=== PATIENT | female | born 1940 | race Caucasian/White ===

== ENCOUNTER → 2016-07-29 | Outpatient (CLI) | payer MEDICARE, OTHER ==
[~2016-07-29] MED LIST: ASPIRIN81 M1 PO; CIPRO500 MG PO; CRESTOR20 MG PO; DIOVAN320 MG PO; HYDR12.5C PO; LOVASTATIN20 MG PO; PRAVASTATIN SOD20 MG PO
== END | disposition home or self-care (01) ==
LOC: RAD 10:33
DX: M25.551 Pain in right hip (principal)

== ENCOUNTER → 2016-11-05 | Outpatient (CLI) | payer MEDICARE, OTHER | END | disposition home or self-care (01) | LOC: MAMMO 12:42 | DX: Z12.31 Encounter for screening mammogram for malignant neoplasm of breast (principal); N95.9 Unspecified menopausal and perimenopausal disorder; Z90.710 Acquired absence of both cervix and uterus; Z90.722 Acquired absence of ovaries, bilateral ==

== ENCOUNTER 2016-11-16 10:50 | Emergency (ER) | payer MEDICARE, BC ==
[~2016-11-16] VITALS: Wt 104.3 kg
--- NOTE | ~2016-11-16 | EKG ---
[place], [place] ELECTROCARDIOGRAM REPORT NAME: SHA TUCKER UNIT #: [id number] ROOM: DOCTOR: SUREKHA SCHAEFER MD BIRTHDATE: [birth year] DOS: 11/16/2016 TIME: 11:18 am. Sinus tachycardia at rate of 107, leftward axis, poor pericardial R-wave progression. Abnormal electrocardiogram. SUREKHA SCHAEFER MD CM:EKGRPT:ELECTROCARDIOGRAM REPORT [id number] SUREKHA SCHAEFER MD
[2016-11-16 11:31] LABS: BASO % 0.2 % (0.0-1.0); EOS # 0.3 10*3/uL (0.0-0.4); EOS % 7.6 % (1.0-4.0); HEMOGLOBIN 12.7 g/dl (12.0-16.0); LYMPH % 23.7 % (27.0-41.0); MEAN CELL VOLUME 89.7 fl (81.0-99.0); MEAN CORPUSCULAR HGB 29.2 pg (27.0-31.0); MEAN CORPUSCULAR HGB CONC 32.6 g/dl (33.0-37.0); MEAN PLATELET VOLUME 11.1 fl (9.6-12.3); MONO # 0.4 10*3/uL (0.1-1.0); NEUT # 2.4 10*3/uL (2.3-7.9); NEUT % 58.3 % (47.0-73.0); PLATELET COUNT AUTOMATED 131 10*3/uL (130-400); RED BLOOD COUNT 4.35 10*6/uL (4.10-5.10); RED CELL DISTRI WIDTH 14.6 % (0-14.5); WHITE BLOOD COUNT 4.1 10*3/uL (4.8-10.8)
[2016-11-16 11:44] LABS: PROTHROMBIN TIME 10.2 SECONDS (9.0-12.4)
[2016-11-16 11:47] LABS: ALBUMIN 3.5 gm/dl (3.1-4.5); ALKALINE PHOSPHATASE 68 U/L (45-117); BILIRUBIN, TOTAL 0.5 mg/dl (0.2-1.0); BUN 18 mg/dl (7-24); CARBON DIOXIDE 28 mmol/L (21-32); CHLORIDE 102 mmol/L (98-107); EST GLOM FILT AFRICAN AMERICAN > 60 ml/min; GLUCOSE 113 mg/dL (65-99); MAGNESIUM 2.2 mg/dL (1.5-2.1); POTASSIUM 4.2 mmol/L (3.5-5.1); SGOT/AST 23 IU/L (3-35); SGPT/ALT 21 U/L (12-78); SODIUM 140 mmol/L (136-145); TOTAL PROTEIN 7.9 gm/dL (6.4-8.2)
[2016-11-16 11:48] LABS: TROPONIN I < 0.015 ng/ml (<0.045)
== END 2016-11-16 14:22 | disposition home or self-care (01) ==
LOC: ED 10:50
PROVIDERS: Emergency Medicine
DX: R06.00 Dyspnea, unspecified (principal); Z79.82 Long term (current) use of aspirin

== ENCOUNTER → 2016-11-19 | Outpatient (CLI) | payer MEDICARE, BC ==
[~2016-11-19] MED LIST changes: +ALEVE220 MG PO; +CRESTOR PO; +EVISTA60 MG PO; +LEXAPRO10 MG PO; +SYNTHROID25 MCG PO
--- NOTE | ~2016-11-19 | ST ---
[place], [place] EXERCISE STRESS TEST REPORT NAME[id number] UNIT #: [id number] ROOM: DOCTOR: FORTINO SYKES MD BIRTHDATE: [birth year] DOS: 11/19/2016 LEXISCAN STRESS TEST REASON FOR TESTING: Evaluation of shortness of breath and chest heaviness. After explaining the procedure and obtaining consent, the patient was subjected to Lexiscan infusion of 0.4 mg. Resting heart rate was 99 with blood pressure of 118/52. EKG showed sinus rhythm, normal axis, nonspecific ST-T wave changes. The patient did not have any complaints of chest pains during the stress test, but she did complain of chest heaviness. EKG did not show any abnormalities during the Lexiscan infusion. After the infusion was over, she was injected with Cardiolite and stress images were taken. ASSESSMENT AND PLAN: Lexiscan stress test without any ST-T wave changes or arrhythmias. The patient does complain of chest heaviness. We are awaiting the Cardiolite images. FORTINO SYKES MD CM:STRESS:EXERCISE STRESS TEST REPORT [id number] FORTINO SYKES MD
== END | disposition home or self-care (01) ==
LOC: CARD 02:33
DX: R06.00 Dyspnea, unspecified (principal); R06.02 Shortness of breath

== ENCOUNTER 2017-06-06 11:05 | Emergency (ER) | payer MEDICARE, BC | END 2017-06-06 13:42 | disposition home or self-care (01) | LOC: ED 11:05 | DX: S52.511A Displaced fracture of right radial styloid process, initial encounter for closed fracture (principal); Z90.710 Acquired absence of both cervix and uterus; Z96.652 Presence of left artificial knee joint; Z98.42 Cataract extraction status, left eye; Z79.82 Long term (current) use of aspirin; Z79.899 Other long term (current) drug therapy; W19.XXXA Unspecified fall, initial encounter; Y93.89 Activity, other specified; Y92.89 Other specified places as the place of occurrence of the external cause; Y99.9 Unspecified external cause status ==

== ENCOUNTER → 2017-10-27 | Outpatient (CLI) | payer MEDICARE, BC | END | disposition home or self-care (01) | LOC: LAB 09:16 | DX: Z01.818 Encounter for other preprocedural examination (principal) ==

== ENCOUNTER 2018-11-30 16:32 | Emergency (ER) | payer MEDICARE, BC ==
[~2018-11-30] VITALS: Ht 172.7 cm; Wt 102.1 kg
[2018-11-30] MEDS ORDERED: NORCO 5-325 TA1 EACH PO (19:56)
== END 2018-11-30 20:15 | disposition home or self-care (01) ==
LOC: ED 16:32
DX: S42.215A Unspecified nondisplaced fracture of surgical neck of left humerus, initial encounter for closed fracture (principal); S42.255A Nondisplaced fracture of greater tuberosity of left humerus, initial encounter for closed fracture; S42.265A Nondisplaced fracture of lesser tuberosity of left humerus, initial encounter for closed fracture; M25.562 Pain in left knee; Z79.899 Other long term (current) drug therapy; Z79.82 Long term (current) use of aspirin; Z90.710 Acquired absence of both cervix and uterus; W18.09XA Striking against other object with subsequent fall, initial encounter; Y93.01 Activity, walking, marching and hiking; Y92.238 Other place in hospital as the place of occurrence of the external cause; Y99.8 Other external cause status

== ENCOUNTER → 2018-12-28 | Outpatient (CLI) | payer MEDICARE, BC ==
[~2018-12-28] MED LIST changes: +NORCO 5-325 TA1 EACH PO
== END | disposition home or self-care (01) ==
LOC: CT 10:10
DX: S42.402D Unspecified fracture of lower end of left humerus, subsequent encounter for fracture with routine healing (principal); X58.XXXD Exposure to other specified factors, subsequent encounter

== ENCOUNTER → 2019-02-07 | Outpatient (CLI) | payer MEDICARE, BC | END | disposition home or self-care (01) | LOC: CT 10:28 | DX: S42.202D Unspecified fracture of upper end of left humerus, subsequent encounter for fracture with routine healing (principal); M62.50 Muscle wasting and atrophy, not elsewhere classified, unspecified site; X58.XXXD Exposure to other specified factors, subsequent encounter ==

== ENCOUNTER 2019-09-07 16:32 | Emergency (ER) | payer MEDICARE, BC ==
[~2019-09-07] VITALS: Ht 172.7 cm; Wt 104.3 kg
[2019-09-07 17:18] LABS: BILIRUBIN 1+ (NEGATIVE); BLOOD NEGATIVE (NEGATIVE); CLARITY SL CLOUDY (CLEAR); COLOR YELLOW (YELLOW); GLUCOSE NEGATIVE (NEGATIVE); KETONE NEGATIVE (NEGATIVE); LEUKO ESTERASE TRACE (NEGATIVE); NITRITE NEGATIVE (NEGATIVE); UROBILINOGEN 0.2 E.U./dl (0.2-1.0)
[2019-09-07 17:21] LABS: BACTERIA 2+; EPITHELIAL CELLS 15-20; MUCOUS 1+; YEAST 1+
[2019-09-07 17:32] LABS: BASO % 0.6 % (0.0-1.0); EOS # 0.3 10*3/uL (0.0-0.4); EOS % 3.6 % (1.0-4.0); HEMATOCRIT 38.8 % (37.0-47.0); HEMOGLOBIN 11.9 g/dl (12.0-16.0); LYMPH # 2.7 10*3/uL (1.3-4.4); LYMPH % 37.3 % (27.0-41.0); MEAN CELL VOLUME 89.8 fl (81.0-99.0); MEAN CORPUSCULAR HGB 27.5 pg (27.0-31.0); MEAN CORPUSCULAR HGB CONC 30.7 g/dl (33.0-37.0); MEAN PLATELET VOLUME 11.1 fl (9.6-12.3); MONO # 0.7 10*3/uL (0.1-1.0); MONO % 9.1 % (3.0-9.0); NEUT # 3.6 10*3/uL (2.3-7.9); NEUT % 49.3 % (47.0-73.0); PLATELET COUNT AUTOMATED 221 10*3/uL (130-400); RED BLOOD COUNT 4.32 10*6/uL (4.10-5.10); RED CELL DISTRI WIDTH 13.5 % (0-14.5); WHITE BLOOD COUNT 7.2 10*3/uL (4.8-10.8)
[2019-09-07 17:58] LABS: ALBUMIN 3.6 gm/dl (3.1-4.5); ALKALINE PHOSPHATASE 102 U/L (45-117); BUN 17 mg/dl (7-24); CHLORIDE 109 mmol/L (98-107); SGOT/AST 20 IU/L (3-35); SGPT/ALT 24 U/L (12-78); SODIUM 141 mmol/L (136-145); TOTAL PROTEIN 7.4 gm/dL (6.4-8.2)
[2019-09-07] MEDS ORDERED: CEFUROXIME AXE500 MG PO (18:27)
== END 2019-09-07 18:14 | disposition home or self-care (01) ==
LOC: ED 16:32
PROVIDERS: Nurse Practitioner Family
DX: N39.0 Urinary tract infection, site not specified (principal); I10 Essential (primary) hypertension; F41.9 Anxiety disorder, unspecified; E78.00 Pure hypercholesterolemia, unspecified; Z79.899 Other long term (current) drug therapy; Z79.82 Long term (current) use of aspirin

== ENCOUNTER 2019-10-09 11:53 | Inpatient (IN) | payer MEDICARE, BC ==
[~2019-10-09] VITALS: Ht 172.7 cm; Wt 108.0 kg
[~2019-10-09 11:53] MED LIST changes: +CEFUROXIME AXE500 MG PO
[2019-10-09 11:58] VITALS: BP 146/72
[2019-10-09 12:30] LABS: BASO % 0.6 % (0.0-1.0); EOS # 0.1 10*3/uL (0.0-0.4); EOS % 0.9 % (1.0-4.0); HEMATOCRIT 37.4 % (37.0-47.0); HEMOGLOBIN 11.6 g/dl (12.0-16.0); LYMPH # 1.3 10*3/uL (1.3-4.4); LYMPH % 23.7 % (27.0-41.0); MEAN PLATELET VOLUME 10.7 fl (9.6-12.3); MONO # 0.8 10*3/uL (0.1-1.0); MONO % 13.8 % (3.0-9.0); NEUT # 3.3 10*3/uL (2.3-7.9); NEUT % 60.4 % (47.0-73.0); PLATELET COUNT AUTOMATED 176 10*3/uL (130-400); RED CELL DISTRI WIDTH 14.6 % (0-14.5); WHITE BLOOD COUNT 5.4 10*3/uL (4.8-10.8)
[2019-10-09 12:45] LABS: ALBUMIN 3.5 gm/dl (3.1-4.5); ALKALINE PHOSPHATASE 84 U/L (45-117); BUN 8 mg/dl (7-24); CHLORIDE 103 mmol/L (98-107); CREATININE 0.91 mg/dL (0.55-1.02); POTASSIUM 3.6 mmol/L (3.5-5.1); SGOT/AST 57 IU/L (3-35); SGPT/ALT 38 U/L (12-78); SODIUM 137 mmol/L (136-145); TOTAL PROTEIN 7.6 gm/dL (6.4-8.2)
[2019-10-09 12:51] LABS: TROPONIN I < 0.015 ng/ml (<0.045)
[2019-10-09 12:52] LABS: ACT PARTIAL THROMBO TIME 25.4 SECONDS (20.0-32.1)
[2019-10-09 20:55] VITALS: BP 114/61
[2019-10-10] VITALS: BP 131/64
[2019-10-10 00:12] VITALS: BP 118/72
[2019-10-10 06:45] LABS: BASO % 0.2 % (0.0-1.0); HEMATOCRIT 34.4 % (37.0-47.0); HEMOGLOBIN 10.6 g/dl (12.0-16.0); LYMPH # 1.2 10*3/uL (1.3-4.4); LYMPH % 26.3 % (27.0-41.0); MEAN CELL VOLUME 87.5 fl (81.0-99.0); MEAN CORPUSCULAR HGB CONC 30.8 g/dl (33.0-37.0); MEAN PLATELET VOLUME 11.3 fl (9.6-12.3); MONO # 0.5 10*3/uL (0.1-1.0); MONO % 10.9 % (3.0-9.0); NEUT # 2.8 10*3/uL (2.3-7.9); NEUT % 61.9 % (47.0-73.0); PLATELET COUNT AUTOMATED 181 10*3/uL (130-400); RED BLOOD COUNT 3.93 10*6/uL (4.10-5.10); RED CELL DISTRI WIDTH 14.6 % (0-14.5); WHITE BLOOD COUNT 4.5 10*3/uL (4.8-10.8)
[2019-10-10 06:49] LABS: ACT PARTIAL THROMBO TIME 28.5 SECONDS (20.0-32.1)
[2019-10-10 06:51] LABS: ALKALINE PHOSPHATASE 74 U/L (45-117); BUN 15 mg/dl (7-24); CHLORIDE 107 mmol/L (98-107); CREATININE 0.81 mg/dL (0.55-1.02); PHOSPHOROUS 4.3 mg/dL (2.5-4.9); SGOT/AST 34 IU/L (3-35); SGPT/ALT 31 U/L (12-78); SODIUM 141 mmol/L (136-145); TOTAL PROTEIN 6.9 gm/dL (6.4-8.2)
[2019-10-10 08:00] VITALS: BP 132/56
[2019-10-10 12:00] VITALS: BP 130/62
[2019-10-10 16:00] VITALS: BP 137/44
[2019-10-10 20:00] VITALS: BP 143/68
[2019-10-10] MEDS ORDERED: NORVASC5 MG PO (20:02)
[2019-10-10] MEDS ORDERED: METOPROLOL SUCC25 M2 PO (20:02)
[2019-10-10] MEDS ORDERED: SYNTHROID25 MCG PO (20:04)
[2019-10-10] MEDS ORDERED: CRESTOR20 M1 PO (20:04)
[2019-10-10] MEDS ORDERED: LEXAPRO10 MG PO (20:05)
[2019-10-10] MEDS ORDERED: SYMB80 INH (20:05)
[2019-10-10] MEDS ORDERED: COZAAR100 MG PO (20:05)
[2019-10-11] VITALS: BP 136/46
[2019-10-11 08:00] VITALS: BP 129/82
[2019-10-11 12:00] VITALS: BP 118/96
[2019-10-11 16:00] VITALS: BP 129/55
[2019-10-11 20:00] VITALS: BP 140/76
[2019-10-12 08:00] VITALS: BP 142/82
[2019-10-12 12:00] VITALS: BP 112/70
[2019-10-12] MEDS ORDERED: VENT7GM INH (14:06)
== END 2019-10-12 16:25 | disposition home or self-care (01) | DRG 194 ==
LOC: ED 11:53 → EDHOLD 17:20 → 5E 17:20
PROVIDERS: Family Medicine; Internal Medicine; Physician Assistant; ADMIT Internal Medicine
DX: J18.9 Pneumonia, unspecified organism (principal); E44.0 Moderate protein-calorie malnutrition; R68.89 Other general symptoms and signs; D64.9 Anemia, unspecified; R73.9 Hyperglycemia, unspecified; E83.41 Hypermagnesemia; I25.10 Atherosclerotic heart disease of native coronary artery without angina pectoris; E78.5 Hyperlipidemia, unspecified; I10 Essential (primary) hypertension; E03.9 Hypothyroidism, unspecified; F41.1 Generalized anxiety disorder; Z79.82 Long term (current) use of aspirin; Z79.899 Other long term (current) drug therapy; Z68.36 Body mass index [BMI] 36.0-36.9, adult

== ENCOUNTER 2021-07-09 11:07 | Emergency (ER) | payer MEDICARE, BC ==
[~2021-07-09] VITALS: Ht 172.7 cm; Wt 102.1 kg
[~2021-07-09 11:07] MED LIST changes: +COZAAR100 MG PO; +CRESTOR20 M1 PO; +METOPROLOL SUCC25 M2 PO; +NORVASC5 MG PO; +SYMB80 INH; +VENT7GM INH
[2021-07-09 15:35] LABS: BILIRUBIN Negative (Negative); BLOOD Negative (Negative); CLARITY Cloudy (Clear); COLOR Yellow (Yellow); GLUCOSE Negative (Negative); KETONE Trace (Negative); LEUKO ESTERASE 1+ (Negative); NITRITE Negative (Negative); SPECIFIC GRAVITY 1.025 (1.001-1.030)
[2021-07-09 16:03] LABS: BACTERIA 1+
[2021-07-09 16:47] LABS: BASO # 0.1 10*3/uL (0.0-0.1); BASO % 0.8 % (0.0-1.0); EOS # 0.3 10*3/uL (0.0-0.4); EOS % 4.4 % (1.0-4.0); LYMPH # 2.9 10*3/uL (1.3-4.4); LYMPH % 44.1 % (27.0-41.0); MEAN CELL VOLUME 87.4 fl (81.0-99.0); MEAN CORPUSCULAR HGB 26.4 pg (27.0-31.0); MEAN CORPUSCULAR HGB CONC 30.3 g/dl (33.0-37.0); MONO # 0.7 10*3/uL (0.1-1.0); MONO % 9.8 % (3.0-9.0); NEUT # 2.7 10*3/uL (2.3-7.9); NEUT % 40.7 % (47.0-73.0); PLATELET COUNT AUTOMATED 223 10*3/uL (130-400); RED BLOOD COUNT 4.35 10*6/uL (4.10-5.10); RED CELL DISTRI WIDTH 15.7 % (0-14.5); WHITE BLOOD COUNT 6.7 10*3/uL (4.8-10.8)
[2021-07-09 16:58] LABS: ACT PARTIAL THROMBO TIME 25.8 SECONDS (20.0-32.1)
[2021-07-09 17:06] LABS: ALBUMIN 3.3 gm/dl (3.1-4.5); ALKALINE PHOSPHATASE 79 U/L (45-117); BUN 9 mg/dl (7-24); CHLORIDE 106 mmol/L (98-107); CREATININE 0.72 mg/dL (0.55-1.02); LIPASE 109 U/L (73-393); POTASSIUM 3.5 mmol/L (3.5-5.1); SGOT/AST 21 IU/L (3-35); SGPT/ALT 20 U/L (12-78); SODIUM 140 mmol/L (136-145); TOTAL PROTEIN 7.7 gm/dL (6.4-8.2)
[2021-07-09] MEDS ORDERED: SEPTDS PO (20:58)
== END 2021-07-09 23:25 | disposition left against medical advice (07) ==
LOC: ED 11:07
PROVIDERS: Physician Assistant
DX: L03.116 Cellulitis of left lower limb (principal); Z79.899 Other long term (current) drug therapy

== ENCOUNTER 2021-07-29 12:22 | Emergency (ER) | payer MEDICARE, BC ==
[~2021-07-29] VITALS: Wt 99.8 kg
[~2021-07-29 12:22] MED LIST changes: +SEPTDS PO
[2021-07-29 13:16] LABS: BASO % 0.5 % (0.0-1.0); EOS # 0.3 10*3/uL (0.0-0.4); EOS % 3.8 % (1.0-4.0); HEMATOCRIT 38.2 % (37.0-47.0); LYMPH # 3.2 10*3/uL (1.3-4.4); LYMPH % 39.5 % (27.0-41.0); MEAN CELL VOLUME 87.4 fl (81.0-99.0); MEAN CORPUSCULAR HGB 26.8 pg (27.0-31.0); MEAN CORPUSCULAR HGB CONC 30.6 g/dl (33.0-37.0); MONO # 0.7 10*3/uL (0.1-1.0); NEUT # 3.9 10*3/uL (2.3-7.9); PLATELET COUNT AUTOMATED 218 10*3/uL (130-400); RED BLOOD COUNT 4.37 10*6/uL (4.10-5.10); RED CELL DISTRI WIDTH 15.4 % (0-14.5); WHITE BLOOD COUNT 8.1 10*3/uL (4.8-10.8)
[2021-07-29 13:34] LABS: ALBUMIN 3.5 gm/dl (3.1-4.5); ALKALINE PHOSPHATASE 86 U/L (45-117); BUN 14 mg/dl (7-24); CHLORIDE 106 mmol/L (98-107); CREATININE 0.82 mg/dL (0.55-1.02); POTASSIUM 4.1 mmol/L (3.5-5.1); SGOT/AST 29 IU/L (3-35); SGPT/ALT 20 U/L (12-78); SODIUM 139 mmol/L (136-145); TOTAL PROTEIN 7.8 gm/dL (6.4-8.2)
[2021-07-29] MEDS ORDERED: CLINDAMYCIN HC300 MG PO (15:21)
== END 2021-07-29 15:52 | disposition home or self-care (01) ==
LOC: ED 12:22
PROVIDERS: Physician Assistant
DX: L03.116 Cellulitis of left lower limb (principal)

== ENCOUNTER 2022-10-19 14:38 | Emergency (ER) | payer MEDICARE, BC ==
[~2022-10-19] VITALS: Ht 165.1 cm; Wt 99.8 kg
[~2022-10-19 14:38] MED LIST changes: +CLINDAMYCIN HC300 MG PO
[2022-10-19 15:58] LABS: BILIRUBIN Negative (Negative); BLOOD Negative (Negative); CLARITY Cloudy (Clear); COLOR Dark Yellow (Yellow); GLUCOSE Negative (Negative); KETONE Trace (Negative); LEUKO ESTERASE 1+ (Negative); NITRITE Positive (Negative); PH 5.5 (4.5-8.0); SPECIFIC GRAVITY >= 1.030 (1.001-1.030)
[2022-10-19 17:31] LABS: BACTERIA 1+; RBC 0-2 rbc/hpf (0-2)
[2022-10-19] MEDS ORDERED: TRAMADOL HCL50 MG PO (17:34)
[2022-10-19] MEDS ORDERED: CEPHALEXIN500 M1 PO (17:34)
== END 2022-10-19 17:51 | disposition home or self-care (01) ==
LOC: ED 14:38
PROVIDERS: Physician Assistant
DX: S32.028A Other fracture of second lumbar vertebra, initial encounter for closed fracture (principal); S32.018A Other fracture of first lumbar vertebra, initial encounter for closed fracture; I10 Essential (primary) hypertension; N39.0 Urinary tract infection, site not specified; F41.9 Anxiety disorder, unspecified; J45.909 Unspecified asthma, uncomplicated; E78.00 Pure hypercholesterolemia, unspecified; Z90.710 Acquired absence of both cervix and uterus; Z96.652 Presence of left artificial knee joint; Z98.42 Cataract extraction status, left eye; X58.XXXA Exposure to other specified factors, initial encounter; Y93.89 Activity, other specified; Y92.89 Other specified places as the place of occurrence of the external cause; Y99.8 Other external cause status

== ENCOUNTER 2022-11-25 12:03 | Emergency (ER) | payer MEDICARE, BC ==
[~2022-11-25] VITALS: Ht 170.1 cm; Wt 95.3 kg
[~2022-11-25 12:03] MED LIST changes: +CEPHALEXIN500 M1 PO; +TRAMADOL HCL50 MG PO
[2022-11-25 12:39] LABS: BASO % 0.8 % (0.0-1.0); EOS # 0.1 10*3/uL (0.0-0.4); LYMPH # 1.6 10*3/uL (1.3-4.4); LYMPH % 32.3 % (27.0-41.0); MEAN CELL VOLUME 83.3 fl (81.0-99.0); MEAN CORPUSCULAR HGB 26.3 pg (27.0-31.0); MEAN CORPUSCULAR HGB CONC 31.5 g/dl (33.0-37.0); MEAN PLATELET VOLUME 11.4 fl (9.6-12.3); MONO # 0.4 10*3/uL (0.1-1.0); MONO % 7.3 % (3.0-9.0); NEUT # 2.9 10*3/uL (2.3-7.9); NEUT % 57.4 % (47.0-73.0); PLATELET COUNT AUTOMATED 192 10*3/uL (130-400); RED CELL DISTRI WIDTH 16.4 % (0-14.5); WHITE BLOOD COUNT 5.1 10*3/uL (4.8-10.8)
[2022-11-25 12:48] LABS: INTERNATIONAL NORM RATIO 1.1 (2.0-3.5)
[2022-11-25 12:56] LABS: ALKALINE PHOSPHATASE 99 U/L (46-116); BUN 10 mg/dl (9-23); CHLORIDE 103 mmol/L (98-107); POTASSIUM 3.8 mmol/L (3.4-5.1); TOTAL PROTEIN 7.2 gm/dL (6.0-8.0)
[2022-11-25 12:58] LABS: SGPT/ALT < 7 U/L (10-49)
[2022-11-25 15:20] LABS: BILIRUBIN Negative (Negative); BLOOD Negative (Negative); CLARITY Clear (Clear); COLOR Yellow (Yellow); GLUCOSE Negative (Negative); KETONE 1+ (Negative); LEUKO ESTERASE Trace (Negative); NITRITE Negative (Negative); SPECIFIC GRAVITY 1.015 (1.001-1.030)
[2022-11-25 15:28] LABS: BACTERIA 1+; CALCIUM OXALATE CRYSTALS 1+; MUCOUS 1+
== END 2022-11-25 16:00 | disposition short-term general hospital (02) ==
LOC: ED 12:03
PROVIDERS: Student in an Organized Health Care Education/Training Program
DX: S22.088A Other fracture of T11-T12 vertebra, initial encounter for closed fracture (principal); I10 Essential (primary) hypertension; F41.9 Anxiety disorder, unspecified; J45.909 Unspecified asthma, uncomplicated; E78.00 Pure hypercholesterolemia, unspecified; Z90.710 Acquired absence of both cervix and uterus; Z96.652 Presence of left artificial knee joint; Z98.42 Cataract extraction status, left eye; Z79.899 Other long term (current) drug therapy; X50.1XXA Overexertion from prolonged static or awkward postures, initial encounter; Y93.89 Activity, other specified; Y92.009 Unspecified place in unspecified non-institutional (private) residence as the place of occurrence of the external cause; Y99.8 Other external cause status

== ENCOUNTER → 2023-02-05 | Outpatient (CLI) | payer MEDICARE, BC | END | disposition home or self-care (01) | LOC: RAD 01:21 | PROVIDERS: ATTEND Physician Assistant | DX: S32.009A Unspecified fracture of unspecified lumbar vertebra, initial encounter for closed fracture (principal); M85.9 Disorder of bone density and structure, unspecified; T14.90XA Injury, unspecified, initial encounter; X58.XXXA Exposure to other specified factors, initial encounter; Y93.89 Activity, other specified; Y92.89 Other specified places as the place of occurrence of the external cause; Y99.8 Other external cause status ==

== ENCOUNTER 2023-06-19 15:19 | Emergency (ER) | payer MEDICARE, BC ==
[~2023-06-19] VITALS: Ht 170.1 cm; Wt 95.3 kg
[2023-06-19 16:37] LABS: BASO % 0.4 % (0.0-1.0); EOS # 0.2 10*3/uL (0.0-0.4); EOS % 3.4 % (1.0-4.0); HEMATOCRIT 37.8 % (37.0-47.0); LYMPH # 0.9 10*3/uL (1.3-4.4); LYMPH % 17.3 % (27.0-41.0); MEAN CELL VOLUME 88.9 fl (81.0-99.0); MEAN CORPUSCULAR HGB 28.9 pg (27.0-31.0); MEAN CORPUSCULAR HGB CONC 32.5 g/dl (33.0-37.0); MEAN PLATELET VOLUME 10.2 fl (9.6-12.3); MONO # 0.5 10*3/uL (0.1-1.0); MONO % 10.1 % (3.0-9.0); NEUT # 3.5 10*3/uL (2.3-7.9); NEUT % 68.6 % (47.0-73.0); PLATELET COUNT AUTOMATED 187 10*3/uL (130-400); RED BLOOD COUNT 4.25 10*6/uL (4.10-5.10); RED CELL DISTRI WIDTH 14.1 % (0-14.5)
[2023-06-19 16:59] LABS: ALKALINE PHOSPHATASE 92 U/L (46-116); BUN 7 mg/dl (9-23); CHLORIDE 106 mmol/L (98-107); POTASSIUM 3.6 mmol/L (3.4-5.1); SGPT/ALT 11 U/L (5-49); TOTAL PROTEIN 7.6 gm/dL (6.0-8.0)
[2023-06-19 18:06] LABS: BILIRUBIN Negative (Negative); BLOOD Negative (Negative); CLARITY Clear (Clear); COLOR Yellow (Yellow); GLUCOSE Negative (Negative); KETONE Trace (Negative); LEUKO ESTERASE Negative (Negative); NITRITE Negative (Negative); SPECIFIC GRAVITY 1.015 (1.001-1.030); UROBILINOGEN 0.2 E.U./dl (0.0-1.0)
[2023-06-19 18:15] LABS: BACTERIA 2+
== END 2023-06-19 19:27 | disposition home or self-care (01) ==
LOC: ED 15:19
PROVIDERS: Student in an Organized Health Care Education/Training Program
DX: K52.9 Noninfective gastroenteritis and colitis, unspecified (principal); R63.0 Anorexia; R11.2 Nausea with vomiting, unspecified; I10 Essential (primary) hypertension; F41.9 Anxiety disorder, unspecified; J45.909 Unspecified asthma, uncomplicated; E78.00 Pure hypercholesterolemia, unspecified; Z90.710 Acquired absence of both cervix and uterus; Z96.652 Presence of left artificial knee joint; Z98.890 Other specified postprocedural states; Z79.899 Other long term (current) drug therapy

== ENCOUNTER 2023-12-19 13:02 | Inpatient (IN) | payer MEDICARE, BC ==
[~2023-12-19] VITALS: Ht 172.7 cm; Wt 90.9 kg
[2023-12-19 13:05] VITALS: BP 153/85
[2023-12-19] MEDS ORDERED: IBANDRONATE SO150 M1 PO (13:12)
[2023-12-19] MEDS ORDERED: Metoprolol Tartrate 5 MG/5 ML VIAL IV ONE ×2 (13:15→21:00)
[2023-12-19 13:28] LABS: BASO % 0.6 % (0.0-1.0); EOS # 0.2 10*3/uL (0.0-0.4); EOS % 3.3 % (1.0-4.0); HEMATOCRIT 35.5 % (37.0-47.0); LYMPH # 1.8 10*3/uL (1.3-4.4); LYMPH % 26.4 % (27.0-41.0); MEAN CELL VOLUME 92.7 fl (81.0-99.0); MEAN CORPUSCULAR HGB 28.7 pg (27.0-31.0); MEAN PLATELET VOLUME 11.1 fl (9.6-12.3); MONO # 0.6 10*3/uL (0.1-1.0); MONO % 9.3 % (3.0-9.0); PLATELET COUNT AUTOMATED 165 10*3/uL (130-400); RED BLOOD COUNT 3.83 10*6/uL (4.10-5.10); RED CELL DISTRI WIDTH 14.1 % (0-14.5); WHITE BLOOD COUNT 6.7 10*3/uL (4.8-10.8)
[2023-12-19 13:45] LABS: ALKALINE PHOSPHATASE 49 U/L (46-116); BUN 14 mg/dl (9-23); CHLORIDE 105 mmol/L (98-107); SGPT/ALT 13 U/L (5-49); TOTAL PROTEIN 7.1 gm/dL (6.0-8.0)
[2023-12-19 14:25] LABS: BILIRUBIN Negative (Negative); BLOOD Negative (Negative); CLARITY Clear (Clear); COLOR Yellow (Yellow); GLUCOSE Negative (Negative); KETONE Negative (Negative); LEUKO ESTERASE Trace (Negative); NITRITE Negative (Negative); PH 6.5 (4.5-8.0); UROBILINOGEN 0.2 E.U./dl (0.0-1.0)
[2023-12-19 14:33] LABS: BACTERIA TRACE; HYALINE CAST 0-2
[2023-12-19] MEDS ORDERED: Magnesium Hydroxide 30 ML UDC PO PRN (15:20)
[2023-12-19] MEDS ORDERED: BISACODYL 5 MG TAB PO PRN (15:20)
[2023-12-19] MEDS ORDERED: Ondansetron Hydrochloride 4 MG/2 ML VIAL IV PRN (15:20)
[2023-12-19] MEDS ORDERED: ACETAMINOPHEN 325 MG TAB PO PRN (15:20)
[2023-12-19] MEDS ORDERED: MORPHINE Sulfate 2 MG/ML SYR IV PRN (15:20)
[2023-12-19] MEDS ORDERED: BISACODYL 10 MG SUPP R PRN (15:20)
[2023-12-19] MEDS ORDERED: Acetaminophen/Hydrocodone 5 MG/325 MG TABLET PO PRN (15:20)
[2023-12-19] MEDS ORDERED: Pantoprazole Sodium 40 MG TAB PO PRN (15:25)
[2023-12-19] MEDS ORDERED: Enoxaparin Sodium 100 MG/ML SYR SC SCH (18:00)
[2023-12-19] MEDS ORDERED: METOPROLOL SUCCINATE XR 25 MG TAB PO SCH (18:00)
[2023-12-19 19:00] VITALS: BP 139/83
[2023-12-19 19:36] VITALS: BP 127/72
[2023-12-19 20:59] VITALS: BP 142/79
[2023-12-19 21:22] VITALS: BP 120/53
[2023-12-19 21:40] VITALS: BP 104/72
[2023-12-19] MEDS ORDERED: hydrOXYzine pamoate 25 MG CAP PO ONE (22:55)
[2023-12-20 06:01] LABS: ALKALINE PHOSPHATASE 51 U/L (46-116); BUN 12 mg/dl (9-23); CHLORIDE 104 mmol/L (98-107); CHOLESTEROL 120 mg/dL (<200); FREE T4 0.93 ng/dl (0.89-1.76); LDL CHOLESTEROL 44 mg/dL (9-159); POTASSIUM 4.1 mmol/L (3.4-5.1); SGPT/ALT 12 U/L (5-49); TOTAL PROTEIN 7.2 gm/dL (6.0-8.0); TRIGLYCERIDES 162 mg/dl (<150)
[2023-12-20 06:10] LABS: BASO % 0.5 % (0.0-1.0); EOS # 0.2 10*3/uL (0.0-0.4); EOS % 2.8 % (1.0-4.0); HEMATOCRIT 36.4 % (37.0-47.0); LYMPH # 2.6 10*3/uL (1.3-4.4); LYMPH % 32.7 % (27.0-41.0); MEAN CELL VOLUME 92.6 fl (81.0-99.0); MEAN CORPUSCULAR HGB CONC 31.3 g/dl (33.0-37.0); MEAN PLATELET VOLUME 11.8 fl (9.6-12.3); MONO # 0.7 10*3/uL (0.1-1.0); MONO % 9.2 % (3.0-9.0); NEUT # 4.3 10*3/uL (2.3-7.9); NEUT % 54.5 % (47.0-73.0); PLATELET COUNT AUTOMATED 199 10*3/uL (130-400); RED BLOOD COUNT 3.93 10*6/uL (4.10-5.10); RED CELL DISTRI WIDTH 14.3 % (0-14.5); WHITE BLOOD COUNT 7.8 10*3/uL (4.8-10.8)
[2023-12-20 08:00] VITALS: BP 107/54
[2023-12-20] MEDS ORDERED: Enoxaparin Sodium 100 MG/ML SYR SC ONE (11:15)
[2023-12-20 12:00] VITALS: BP 103/60
[2023-12-20] MEDS ORDERED: Metoprolol Tartrate 25 MG TAB PO ONE (12:05)
[2023-12-20] MEDS ORDERED: CYANOCOBALAMIN 500 MCG TAB PO SCH (12:35)
[2023-12-20] MEDS ORDERED: Ceftriaxone Sodium 1 GM in SYRINGE INFUSION 10 ML IV SCH (14:00)
[2023-12-20 16:00] VITALS: BP 120/66
[2023-12-20] MEDS ORDERED: ESCITALOPRAM OXALATE 20 MG TAB PO ONE (17:45)
[2023-12-20] MEDS ORDERED: RIVAROXABAN 20 MG TAB PO SCH (18:00)
[2023-12-20 20:00] VITALS: BP 132/75
[2023-12-20] MEDS ORDERED: Metoprolol Tartrate 50 MG TAB PO SCH (22:00)
[2023-12-21] VITALS: BP 99/52
[2023-12-21 07:08] LABS: BASO % 0.7 % (0.0-1.0); EOS # 0.2 10*3/uL (0.0-0.4); EOS % 3.4 % (1.0-4.0); HEMATOCRIT 34.2 % (37.0-47.0); LYMPH # 1.7 10*3/uL (1.3-4.4); LYMPH % 28.1 % (27.0-41.0); MEAN CELL VOLUME 91.4 fl (81.0-99.0); MEAN CORPUSCULAR HGB 28.9 pg (27.0-31.0); MEAN CORPUSCULAR HGB CONC 31.6 g/dl (33.0-37.0); MEAN PLATELET VOLUME 11.8 fl (9.6-12.3); MONO # 0.5 10*3/uL (0.1-1.0); MONO % 8.8 % (3.0-9.0); NEUT # 3.6 10*3/uL (2.3-7.9); NEUT % 58.8 % (47.0-73.0); PLATELET COUNT AUTOMATED 161 10*3/uL (130-400); RED BLOOD COUNT 3.74 10*6/uL (4.10-5.10); RED CELL DISTRI WIDTH 14.6 % (0-14.5); WHITE BLOOD COUNT 6.2 10*3/uL (4.8-10.8)
[2023-12-21 07:37] LABS: BUN 15 mg/dl (9-23); CHLORIDE 106 mmol/L (98-107); POTASSIUM 3.9 mmol/L (3.4-5.1)
[2023-12-21 08:00] VITALS: BP 126/68
[2023-12-21] MEDS ORDERED: ESCITALOPRAM OXALATE 20 MG TAB PO SCH (10:00)
[2023-12-21] MEDS ORDERED: IBANDRONATE SODIUM 150 MG PO SCH (10:00)
[2023-12-21] MEDS ORDERED: amLODIPine besylate 5 MG TAB PO SCH (10:00)
[2023-12-21] MEDS ORDERED: ESCITALOPRAM OXALATE 10 MG TAB PO SCH (10:00)
[2023-12-21] MEDS ORDERED: ATORVASTATIN CALCIUM 20 MG TAB PO SCH (10:00)
[2023-12-21] MEDS ORDERED: Levothyroxine Sodium 25 MCG TAB PO SCH (10:00)
[2023-12-21 12:00] VITALS: BP 106/59
[2023-12-21 16:00] VITALS: BP 104/63
[2023-12-21 20:00] VITALS: BP 110/51
[2023-12-21] MEDS ORDERED: Oxybutynin Chloride 5 MG TAB PO SCH (22:00)
[2023-12-22] VITALS: BP 102/50
[2023-12-22] MEDS ORDERED: Levothyroxine Sodium 25 MCG TAB PO SCH (06:00)
[2023-12-22 08:00] VITALS: BP 131/70
[2023-12-22 12:00] VITALS: BP 106/56
[2023-12-22] MEDS ORDERED: DIGOXIN 500 MCG/2 ML AMP IV ONE (12:05)
[2023-12-22] MEDS ORDERED: Metoprolol Tartrate 50 MG TAB PO SCH (14:00)
[2023-12-22 16:00] VITALS: BP 147/60
[2023-12-22 20:00] VITALS: BP 108/52
[2023-12-23] VITALS: BP 122/62
[2023-12-23 08:06] VITALS: BP 137/62
[2023-12-23 12:13] VITALS: BP 123/76
[2023-12-23] MEDS ORDERED: METOPROLOL TART50 M1 PO (12:40)
[2023-12-23] MEDS ORDERED: XARE20MG PO (12:40)
[2023-12-23] MEDS ORDERED: HYDROCODONE-AC1 EAC1 PO (12:40)
[2023-12-23] MEDS ORDERED: ESCITALOPRAM OX20 MG PO (12:40)
[2023-12-23] MEDS ORDERED: OXYBUTYNIN5 MG PO (12:40)
[2023-12-23] MEDS ORDERED: AMOXICILLIN500 M2 PO (12:40)
== END 2023-12-23 15:33 | DRG 189 ==
LOC: ED 13:02 → EDHOLD 14:38 → 4E 14:38
PROVIDERS: Internal Medicine; Student in an Organized Health Care Education/Training Program; ADMIT Family Medicine; ATTEND Family Medicine
DX: J96.01 Acute respiratory failure with hypoxia (principal); N39.0 Urinary tract infection, site not specified; I48.0 Paroxysmal atrial fibrillation; D64.9 Anemia, unspecified; I10 Essential (primary) hypertension; I34.0 Nonrheumatic mitral (valve) insufficiency; R73.9 Hyperglycemia, unspecified; I25.10 Atherosclerotic heart disease of native coronary artery without angina pectoris; E78.1 Pure hyperglyceridemia; F03.90 Unspecified dementia, unspecified severity, without behavioral disturbance, psychotic disturbance, mood disturbance, and anxiety; E03.9 Hypothyroidism, unspecified; F41.1 Generalized anxiety disorder; E53.8 Deficiency of other specified B group vitamins; W18.39XA Other fall on same level, initial encounter; Y93.89 Activity, other specified; Y92.89 Other specified places as the place of occurrence of the external cause; Y99.8 Other external cause status; Z68.36 Body mass index [BMI] 36.0-36.9, adult; Z90.710 Acquired absence of both cervix and uterus; Z98.42 Cataract extraction status, left eye; Z98.41 Cataract extraction status, right eye; Z79.51 Long term (current) use of inhaled steroids; Z79.899 Other long term (current) drug therapy

== ENCOUNTER 2024-04-04 11:57 | Inpatient (IN) | payer MEDICARE, BC ==
[~2024-04-04] VITALS: Ht 167.6 cm; Wt 83.6 kg
[~2024-04-04 11:57] MED LIST changes: +AMLODIPINE BESYL5 MG PO; +AMOXICILLIN500 M2 PO; +CEFDINIR300 MG PO; +DOXYCYCLINE HY100 M3 PO; +ERTAPENEM1 GM IV; +ESCITALOPRAM OX20 MG PO; +HYDROCODONE-AC1 EAC1 PO; +IBANDRONATE SO150 M1 PO; +METOPROLOL TART50 M1 PO; +OXYBUTYNIN5 MG PO; +PROAIR RESPICL90 MCG INH; +XARE20MG PO
[2024-04-04 12:01] VITALS: BP 126/62
[2024-04-04 12:29] LABS: BASO % 0.5 % (0.0-1.0); EOS # 0.2 10*3/uL (0.0-0.4); EOS % 2.9 % (1.0-4.0); HEMATOCRIT 35.4 % (37.0-47.0); LYMPH # 2.5 10*3/uL (1.3-4.4); LYMPH % 42.3 % (27.0-41.0); MEAN CELL VOLUME 91.9 fl (81.0-99.0); MEAN CORPUSCULAR HGB 27.5 pg (27.0-31.0); MEAN CORPUSCULAR HGB CONC 29.9 g/dl (33.0-37.0); MEAN PLATELET VOLUME 11.4 fl (9.6-12.3); MONO # 0.5 10*3/uL (0.1-1.0); MONO % 8.2 % (3.0-9.0); NEUT # 2.7 10*3/uL (2.3-7.9); NEUT % 45.8 % (47.0-73.0); PLATELET COUNT AUTOMATED 179 10*3/uL (130-400); RED BLOOD COUNT 3.85 10*6/uL (4.10-5.10); WHITE BLOOD COUNT 5.9 10*3/uL (4.8-10.8)
[2024-04-04 12:46] LABS: ALKALINE PHOSPHATASE 46 U/L (46-116); BUN 9 mg/dl (9-23); CHLORIDE 110 mmol/L (98-107); POTASSIUM 3.8 mmol/L (3.4-5.1); SGPT/ALT 12 U/L (5-49); TOTAL PROTEIN 6.8 gm/dL (6.0-8.0)
[2024-04-04 13:19] LABS: BILIRUBIN Negative (Negative); BLOOD Negative (Negative); CLARITY Clear (Clear); COLOR Yellow (Yellow); GLUCOSE Negative (Negative); KETONE Trace (Negative); LEUKO ESTERASE 1+ (Negative); NITRITE Negative (Negative); PH 5.5 (4.5-8.0); SPECIFIC GRAVITY 1.025 (1.001-1.030)
[2024-04-04 13:47] LABS: RBC 0-2 rbc/hpf (0-2); WBC 21-30 wbc/hpf (0-5)
[2024-04-04 13:48] LABS: BACTERIA 2+; EPITHELIAL CELLS 16-20; MUCOUS 1+; YEAST 1+
[2024-04-04] MEDS ORDERED: Ceftriaxone Sodium 1 GM/10 ML SYR IV ONE (14:25)
[2024-04-04 18:15] VITALS: BP 134/72
[2024-04-04 19:20] VITALS: BP 125/67
[2024-04-04] MEDS ORDERED: Albuterol Sulf/Ipratropium 3 ML VIAL NEB PRN (19:20)
[2024-04-04] MEDS ORDERED: Acetaminophen/Hydrocodone 5 MG/325 MG TABLET PO PRN (19:20)
[2024-04-04] MEDS ORDERED: Ceftriaxone Sodium 10 ML IV ONE (19:35)
[2024-04-04] MEDS ORDERED: Metoprolol Tartrate 50 MG TAB PO SCH (22:00)
[2024-04-04 23:12] VITALS: BP 146/77
[2024-04-05 06:15] LABS: BASO % 0.6 % (0.0-1.0); EOS # 0.2 10*3/uL (0.0-0.4); EOS % 3.8 % (1.0-4.0); HEMATOCRIT 35.1 % (37.0-47.0); LYMPH # 2.2 10*3/uL (1.3-4.4); LYMPH % 41.1 % (27.0-41.0); MEAN CELL VOLUME 88.9 fl (81.0-99.0); MEAN CORPUSCULAR HGB 27.8 pg (27.0-31.0); MEAN CORPUSCULAR HGB CONC 31.3 g/dl (33.0-37.0); MEAN PLATELET VOLUME 12.2 fl (9.6-12.3); MONO # 0.5 10*3/uL (0.1-1.0); MONO % 8.6 % (3.0-9.0); NEUT # 2.4 10*3/uL (2.3-7.9); NEUT % 45.7 % (47.0-73.0); PLATELET COUNT AUTOMATED 157 10*3/uL (130-400); RED BLOOD COUNT 3.95 10*6/uL (4.10-5.10); RED CELL DISTRI WIDTH 15.9 % (0-14.5); WHITE BLOOD COUNT 5.3 10*3/uL (4.8-10.8)
[2024-04-05] MEDS ORDERED: Levothyroxine Sodium 25 MCG TAB PO SCH (07:00)
[2024-04-05 07:18] LABS: BUN 8 mg/dl (9-23); CHLORIDE 107 mmol/L (98-107)
[2024-04-05 08:00] VITALS: BP 134/80
[2024-04-05] MEDS ORDERED: RIVASTIGMINE T1.5 M1 PO (08:35)
[2024-04-05] MEDS ORDERED: ESCITALOPRAM OXALATE 20 MG TAB PO SCH (10:00)
[2024-04-05] MEDS ORDERED: amLODIPine besylate 5 MG TAB PO SCH (10:00)
[2024-04-05 12:00] VITALS: BP 127/53
[2024-04-05 16:00] VITALS: BP 109/77
[2024-04-05] MEDS ORDERED: INFUSION IV SCH (16:00)
[2024-04-05] MEDS ORDERED: CEFTRIAXONE SODIUM IV SCH (16:00)
[2024-04-05] MEDS ORDERED: RIVAROXABAN 20 MG TAB PO SCH (18:00)
[2024-04-05 20:00] VITALS: BP 119/51
[2024-04-06] VITALS: BP 126/65
[2024-04-06 08:00] VITALS: BP 136/58
[2024-04-06 12:00] VITALS: BP 104/78
[2024-04-06 16:00] VITALS: BP 117/77
[2024-04-06 20:00] VITALS: BP 117/63
[2024-04-07] VITALS: BP 128/61
[2024-04-07 06:00] VITALS: BP 141/62
[2024-04-07 08:00] VITALS: BP 132/88
[2024-04-07] MEDS ORDERED: AMOX-CLAV 875-1 EACH PO (10:56)
[2024-04-07 12:00] VITALS: BP 132/58
[2024-04-07 16:00] VITALS: BP 132/58
== END 2024-04-07 21:15 | disposition home or self-care (01) | DRG 71 ==
LOC: ED 11:57 → 4E 14:26 → EDHOLD 14:26 → 4E 22:11
PROVIDERS: Nurse Practitioner Family; ADMIT Internal Medicine; ATTEND Internal Medicine
DX: G93.41 Metabolic encephalopathy (principal); F33.0 Major depressive disorder, recurrent, mild; N39.0 Urinary tract infection, site not specified; I48.21 Permanent atrial fibrillation; I25.10 Atherosclerotic heart disease of native coronary artery without angina pectoris; E78.2 Mixed hyperlipidemia; E03.9 Hypothyroidism, unspecified; F41.1 Generalized anxiety disorder; I10 Essential (primary) hypertension; M47.896 Other spondylosis, lumbar region; Z96.652 Presence of left artificial knee joint; G30.1 Alzheimer's disease with late onset; F02.80 Dementia in other diseases classified elsewhere, unspecified severity, without behavioral disturbance, psychotic disturbance, mood disturbance, and anxiety; R62.7 Adult failure to thrive; Z68.29 Body mass index [BMI] 29.0-29.9, adult